=== PATIENT | male | born 1990 | race African-American/Black ===

== ENCOUNTER 2019-03-09 21:42 | Emergency (ER) | payer OTHER ==
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
[2019-03-09 22:11] LABS: Hematocrit 49 % (42-52); Mean Corpuscular HGB Conc 35 g/dL (31-36); Mean Corpuscular Hemoglobin 29 pg (27-31); Mean Corpuscular Volume 84 fL (80-94); Red Blood Count 5.79 10^6 /uL (4.18-5.48); Red Cell Distribution Width 13 % (10-15)
[2019-03-09 22:23] LABS: ABS Basophils 0.2 10^3/ul (0-0.2); ABS Eosinophils 0.1 10^3/ul (0-0.6); ABS Lymphocytes 1.3 10^3/ul (1.0-4.8); ABS Monocytes 0.9 10^3/ul (0-0.8); ABS Neutrophils 9.6 10^3/ul (1.5-7.7); Albumin 4.5 g/dL (3.2-5.2); Albumin/Globulin Ratio 1.7 (1-3); BUN/Creatinine Ratio 12.8 (8-20); Calcium 9.8 mg/dL (8.6-10.3); EGFR African American 96.1 (>60); EGFR Non-African American 79.4 (>60); Eosinophil % 0.8 %; Globulin 2.6 g/dL (2-4); Lymphocyte % 10.9 %; Nucleated Red Blood Cells % 0.1; Platelet Count 273 10^3/uL (150-450); Potassium 4.2 mmol/L (3.5-5.0); Total Bilirubin 0.8 mg/dL (0.2-1.0); Total Protein 7.1 g/dL (6.4-8.9)
[2019-03-10 00:03] LABS: Urine Benzodiazepine Screen None Detected (None Detect); Urine Opiates Screen None Detected (None Detect)
[2019-03-10 01:25] VITALS: BP 125/72
== END 2019-03-10 01:23 | disposition home or self-care (01) ==
LOC: ED 21:42
DX: R55 Syncope and collapse (principal); M79.642 Pain in left hand; G82.20 Paraplegia, unspecified; Z87.891 Personal history of nicotine dependence
CPT/HCPCS: 36415; 80053; 80307; 85025; 93005; 99282